=== PATIENT | female | born 1980 ===

== ENCOUNTER 2022-06-26 13:38 | Emergency (ER) | payer OTHER ==
[2022-06-26] MEDS ORDERED: Scopolamine 1.5 MG Transdermal Patch TRDERM STA (14:04)
[2022-06-26] MEDS ORDERED: Ondansetron 4 MG/2 ML SDV IVPUSH ONE (14:04)
[2022-06-26] MEDS ORDERED: Sodium Chloride 0.9% 1,000 ML IV ONE (14:04)
[2022-06-26 14:54] LABS: CARBON DIOXIDE,CO2 24.3 mmol/L (21.0-32.0); POTASSIUM,K 3.9 mmol/L (3.5-5.1)
[2022-06-26] MEDS ORDERED: Iopamidol 755 MG/ML 500 ML Multipack Bottle IVPUSH ONE (15:21)
== END 2022-06-26 16:41 | disposition home or self-care (01) ==
LOC: MW.ED 13:38
DX: R42 Dizziness and giddiness (principal)
CPT/HCPCS: 36415; 70450; 70496; 70498; 80053; 85025; 93005; 96361; 96374; 99284; A9270; J2405; J7030; Q9967